=== PATIENT | female | born 1980 | race Caucasian/White ===

== ENCOUNTER 2020-10-02 22:52 | Emergency (ER) | payer OTHER, SELFPAY ==
[2020-10-02 22:56] VITALS: BP 169/88; PULSE 94; RESP 20; TEMP 36.9; O2SAT 100
--- NOTE | 2020-10-02 23:46 | ED.BACK ---
HPI - Back Pain/Injury General Chief Complaint: Back Pain/Injury Stated Complaint: back pain Time Seen by Provider: 10/02/20 22:53 Source: patient Mode of arrival: Ambulatory Limitations: no limitations History of Present Illness HPI Narrative: 40F nonsmoker with noncontributory medical history presents with gradual worsening of the paraspinal musculature of her left upper and lower back. Is in locally from [place] and competing in a local sailboat race. She did have a fall earlier in which she fall back flat on her back, but she had little pain with that. She denies any head or neck injury. She denies any numbness, tingling or weakness. Over the course of the evening she started developing some increasing discomfort in her left upper and lower back that is much worse with motion and improves with rest. She denies any chest pain or trouble breathing. She states that she absolutely did not strike her head. She denies any midline or bony type pain. MD Complaint: back pain and back injury Onset (ago): hour(s) Duration: constant Location: lumbar spine and thoracic spine Severity: moderate Quality: burning and aching Radiation: none Exacerbating factors: movement Context: turning/twisting Associated symptoms: denies other symptoms Related Data Previous Rx's Medication Instructions Recorded cyclobenzaprine 10 mg PO TID PRN #14 tab 10/03/20 ketorolac 10 mg PO Q6H PRN #14 tab 10/03/20 lidocaine [Lidoderm] 1 patch TOP DAILY #15 each 10/03/20 Review of Systems Constitutional Constitutional: Denies chills, Denies fatigue, Denies fever(s), Denies frequent falls, Denies lethargy and Denies weakness Eyes Eyes: Denies change in vision, Denies eye discharge, Denies irritation and Denies loss of vision ENT Ears, Nose, Mouth, and Throat: Denies change in voice, Denies dizziness, Denies neck pain, Denies sore throat and Denies throat swelling Cardiovascular Cardiovascular: Denies chest pain, Denies irregular heart rhythm, Denies lightheadedness, Denies palpitations, Denies dyspnea, Denies dyspnea on exertion and Denies orthopnea Respiratory Respiratory: Denies cough, Denies dyspnea, Denies dyspnea on exertion and Denies wheezing Gastrointestinal Gastrointestinal: Denies abdominal pain, Denies change in bowel habits, Denies diarrhea, Denies nausea and Denies vomiting Musculoskeletal Musculoskeletal: Reports back pain, Denies neck pain and Denies numbness Integumentary/Breasts Skin/Breast: Denies pruritus, Denies erythema, Denies rash and Denies wounds Neurologic Neurologic: Denies behavioral changes, Denies confusion, Denies dizziness, Denies frequent falls, Denies loss of vision, Denies numbness and Denies weakness Psychiatric Psychiatric: Denies anxiety, Denies behavioral changes, Denies confusion, Denies depression, Denies homicidal ideation and Denies suicidal ideation Endocrine Endocrine: Denies fatigue, Denies flushing and Denies palpitations Hematologic/Lymphatic Hematologic/Lymphatic: Denies easy bruising Allergic/Immunologic Allergic/Immunologic: Denies urticaria, Denies throat swelling and Denies wheezing Patient History Social History Smoking Status: Never smoker Smoking Status: Never smoker alcohol intake frequency: 0-2 drinks per day Substance Use Type: does not use Exam Narrative Exam Narrative: GENERAL: [40] year old patient appears stated age. Well-developed patient, in mild distress. HEAD: Atraumatic. Normocephalic. EYES: Pupils equal round and reactive. Extraocular motions intact. No scleral icterus. No injection or drainage. ENT: Nose without bleeding, purulent drainage. Throat without erythema, tonsillar hypertrophy or exudate. Airway patent. NECK: Trachea midline. Non tender CARDIOVASCULAR: Regular rate and rhythm without murmurs, gallops, or rubs. RESPIRATORY: Clear to auscultation. Breath sounds equal bilaterally. No wheezes, rales, or rhonchi. GASTROINTESTINAL: Abdomen soft, non-tender, nondistended. EXTREMITIES: No edema or joint tenderness. BACK: No midline or bony pain, she is tender to palpate along the left-sided paraspinal musculature in both the thoracic and lumbar regions, there is no obvious swelling though spasm is palpable NEURO: AOx3. SKIN: No rash or erythema of visible areas Initial Vital Signs Initial Vital Signs: Vital Signs Temperature 98.4 F 10/02/20 22:56 Pulse Rate 94 H 10/02/20 22:56 Respiratory Rate 20 10/02/20 22:56 Blood Pressure 169/88 H 10/02/20 22:56 Pulse Oximetry 100 10/02/20 22:56 Course Orders Ordered: Discontinued Medications Cyclobenzaprine HCl (Cyclobenzaprine 10 Mg Prepack) 1 bottle [facility] [place] SEEIN[facility] ONE Stop: 10/03/20 00:40 Last Admin: 10/03/20 00:51 Dose: 1 bottle Documented by: YASMIN Lidocaine (Lidocaine Patch 1 Each Adh..Patch) 1 each TOP NOW ONE Stop: 10/03/20 00:40 Last Admin: 10/03/20 00:51 Dose: 1 each Documented by: YASMIN Oxycodone/Acetaminophen (Oxycodone/Apap 5/325 Prepack) 1 bottle [facility] ONE Stop: 10/03/20 00:40 Last Admin: 10/03/20 00:51 Dose: 1 bottle Documented by: YASMIN Vital Signs Vital signs: Vital Signs - 8 hr 10/02/20 22:56 Temperature 98.4 F Pulse Rate 94 H Respiratory Rate 20 Blood Pressure 169/88 H Pulse Oximetry 100 MDM - Back Pain/Injury MDM Narrative Medical decision making narrative: Multiple etiologies of back pain considered including; Epidural abscess, cauda equina, mass occupying lesion, and other considered Patient has a very reassuring exam and no bony point tenderness. 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 She has been given return precautions and is had questions answered to her apparent satisfaction Discharge Plan Departure Patient Disposition: Home Clinical Impression: Strain of lumbar region Qualifiers: Encounter type: initial encounter Qualified Code(s): S39.012A - Strain of muscle, fascia and tendon of lower back, initial encounter Instructions: DI for Back Spasm Activity Restrictions/Additional Instructions: *You have been diagnosed with [thoracic and lumbar spasm, likely a consequence of the activities on the sailboat. Your story and exam would suggest against any bony abnormalities in your back] *What to do: *Please continue to take your regular medications as directed. [ ] New medication prescriptions sent to your pharmacy: [ ] [x ] New medication written as a paper prescription [ ] No new medications given *Please follow up with your primary care provider in 2-3 days, call for an appointment. Let them know you were seen in the Emergency Department and that we ask that you be seen in follow up. We will electronically transmit a record of today's note if your PCP is in our system *If you do not have a primary care provider please contact the [facility] Resource line at [phone]. They will ask some questions about your medical history and help get you set up with a doctor in the community. *Return to Emergency Department if you should have any new, worsening or concerning symptoms, such as [fever greater than 101 F, shaking chills, worsening pain, persistent vomiting or other bothersome symptoms] Prescriptions: New cyclobenzaprine 10 mg tablet 10 mg PO TID PRN (Reason: muscle spasm) Qty: 14 RF: 0 ketorolac 10 mg tablet 10 mg PO Q6H PRN (Reason: pain) Qty: 14 RF: 0 lidocaine [Lidoderm] 5 % adhesive patch,medicated 1 patch TOP DAILY Qty: 15 RF: 0
[2020-10-03] MEDS: LIDOCAINE PATCH 1 EACH ADH..PATCH TOP (00:51)
[2020-10-03] MEDS: CYCLOBENZAPRINE 10 MG PREPACK 1 BOTTLE MISC (00:51)
[2020-10-03] MEDS: OXYCODONE/APAP 5/325 PREPACK 1 BOTTLE MISC (00:51)
== END 2020-10-03 00:56 | disposition home or self-care (01) ==
PROVIDERS: Emergency Provider Emergency Medicine
DX: S39.012A Strain of muscle, fascia and tendon of lower back, initial encounter (principal)
CPT/HCPCS: 99282; 99283